=== PATIENT | female | born 1940 | race Hispanic/Latino ===

== ENCOUNTER 2019-06-13 08:49 | Outpatient (CLI) | payer MEDICARE ==
--- NOTE | 2019-06-13 12:00 | Cat Scan Report ---
CT CHEST WITH AND WITHOUT CONTRAST INDICATION / CLINICAL INFORMATION: MAIN: COUGH/WEIGHT LOSS/PERIORBITAL SWELLING TECH NOTE: BAD COUGH X SEVERAL YRS. TECHNIQUE: Axial CT images were obtained through the chest after 100 cc IV contrast. Sagittal and coronal reform atted images. All CT scans at this location are performed using CT dose reduction for ALARA by means of automated exposure control. COMPARISON: 05/13/2015 FINDINGS: HEART: The heart is normal size. No pericardial effusion. Mild three-vessel coronary artery calcifica tions. THORACIC AORTA: Normal caliber. Minimal atherosclerotic calcifications. MEDIASTINUM and DARLEEN: The thyroid gland, tracheobronchial tree and esophagus are unremarkable. Small hiatal hernia. No evidence for mediastinal mass or adenopathy. LUNGS: No acute air space or interstitial disease. PLEURA: No significant pleural effusion. No pneumothorax. SKELETAL SYSTEM: No significant abnormality. UPPER ABDOMEN: No significant abnormality. ADDITIONAL FINDINGS: None. IMPRESSION: No significant abnormality. No clear explanation for cough and weight loss in the chest. Signer Name: Jarred Crystal Jr, MD Signed: 06/13/2019 11:56 AM Workstation Name: [id number]
== END 2019-06-13 08:50 | disposition home or self-care (01) ==
LOC: CT 08:49
PROVIDERS: ATTEND Internal Medicine
DX: R05 Cough (principal); I70.0 Atherosclerosis of aorta; K44.9 Diaphragmatic hernia without obstruction or gangrene; R63.4 Abnormal weight loss; H57.89 Other specified disorders of eye and adnexa
CPT/HCPCS: 36415; 71270; 82565; 84520; Q9967

== ENCOUNTER 2020-12-26 08:16 | Outpatient (CLI) | payer MEDICARE ==
--- NOTE | 2020-12-26 13:53 | Mammography Report ---
DIGITAL SCREENING MAMMOGRAM WITH CAD, 12/26/2020 CLINICAL INFORMATION / INDICATION: Routine screening mammography. SCREENING MAMMO TECHNIQUE: Digital bilateral 2D mammography was obtained in the craniocaudal and mediolateral obliqu e projections. This examination was interpreted with the benefit of Computer-Aided Detection analysis . COMPARISON: 12/25/2019, 04/25/2019 FINDINGS: Breast Density: There are scattered areas of fibroglandular density. No dominant mass, suspicious calcifications, or architectural distortion in either breast. There is a stable focal density on the left. There are stable bilateral calcifications IMPRESSION: No mammographic evidence of malignancy. Follow up recommendation: Routine yearly BI-RADS Category 2: Benign. A "normal" or negative report should not discourage follow up or biopsy of a clinically significant f inding. A written summary of these findings will be mailed to the patient. The patient will be entered into a mammography reporting system which will generate a reminder letter for the patient's next appointmen t at the appropriate interval. [employer] recommends yearly mammograms starting at age 40 and continuing as l jero as a woman is in good health. Breast MRI is recommended for women with an approximate 20-25% or greater lifetime risk of breast cancer, including women with a strong family history of breast or ova marck cancer or who have been treated for Hodgkin's disease. Signer Name: Willem Young MD Signed: 12/26/2020 1:48 PM Workstation Name: [id number]
== END 2020-12-26 08:17 | disposition home or self-care (01) ==
LOC: SPVWC 08:16
PROVIDERS: ATTEND Surgery
DX: Z12.31 Encounter for screening mammogram for malignant neoplasm of breast (principal)
CPT/HCPCS: 77067